=== PATIENT | male | born 1960 | race Caucasian/White ===

== ENCOUNTER 2018-11-27 10:27 | Outpatient (CLI) | payer OTHER ==
--- NOTE | 2018-11-27 20:16 | CT ---
CT ABDOMEN AND PELVIS WITH AND WITHOUT CONTRAST AND WITH RECONSTRUCTIONS ADRENAL WASHOUT STUDY: 11/27/2018 HISTORY/TECHNIQUE: A spiral CT of the abdomen and pelvis is done. There is a history of an adrenal mass, which was said to have been looked at by an MRI in [place] previously. I do not have any imaging studies for compar chio, or written reports. FINDINGS: Axial slices were initially acquired without IV contrast. Venous and delayed images were then obtain ed. The delays were somewhat nonstandard, compared to a classic washout study, but still very helpfu l. There is a rounded area in the right adrenal glands that is presumed to be a small mass but measu res about 1.7 cm in size. The midportion of the left adrenal gland is slightly bulbous as well, thou gh it is hard to absolutely define a mass here. The pre-contrast numbers of the right adrenal gland were -7, highly suggestive of an adenoma in and o f itself. The venous numbers were 30, and it should be noted that this was done somewhat after the w ound might normally do the arterial phase. A 4-minute delay washout was 16. By these values, that w ould yield an absolute washout of 37.8% and a relative washout of 46.7%. Relative washouts of 40% or higher are consistent with adenomas, as are negative numbers on pre-contrast studies. These two nicole ues alone strongly suggest an adenoma. The absolute washout was indeterminate but given the timing b eing nonstandard, I am not surprised with this. The lung bases are clear. The liver, spleen, pancreas, gallbladder, kidneys, and abdominal aorta are unremarkable. The bowel is unremarkable. No free air or free fluid is seen. CT of the pelvis show s no pelvic masses, fluid collections, or free air. There are no acute inflammatory changes. There is probably a very minor amount of thickening of the wall os the sigmoid colon, which I suspect is ch ronic. IMPRESSION: A 1.7 cm right adrenal mass. Washout findings are highly suggestive of a benign adenoma. POS: HOME
== END 2018-11-27 10:28 | disposition home or self-care (01) ==
LOC: BURCT 10:27
PROVIDERS: ATTEND Family Medicine
DX: E27.9 Disorder of adrenal gland, unspecified (principal)
CPT/HCPCS: 74178

== ENCOUNTER 2019-08-25 07:23 | Emergency (ER) | payer MEDICARE, OTHER ==
[2019-08-25 07:56] LABS: #Basophils 0.1 thou/uL (0.0-0.2); #Eosinphils 0.1 thou/uL (0.0-0.7); #Lymphocytes 2.1 thou/uL (1.20-3.40); #Monocytes 0.5 thou/uL (0.11-0.59); #Neutrophils 2.5 thou/uL (1.40-6.50); %Basophils 1.6 % (0.0-1.0); %Eosinophils 1.9 % (0.0-10.0); %Monocytes 9.6 % (0.0-10.0); %Neutrophils 47.8 % (42.0-75.0); Hemoglobin 14.3 g/dL (14.0-18.0); Mean Corpuscular HGB CONC 31.6 g/dL (32.0-36.0); Mean Corpuscular Hemoglobin 28.2 pg (27.0-31.0); Mean Platelet Volume 6.1 fL (7.4-10.4); Platelet Count 311 thou/uL (130-400); RBC Distribution Width 12.6 % (11.5-14.5); White Blood Cell (WBC) Count 5.3 thou/uL (4.8-10.8)
[2019-08-25] MEDS ORDERED: Ketorolac Tromethamine 60 MG/2 ML VIAL ONE (08:09)
[2019-08-25 08:16] LABS: ALT (SGPT) 54 U/L (8-55); AST (SGOT) 21 U/L (5-34); Albumin 4.2 g/dL (3.5-5.0); Alkaline Phosphatase 120 U/L (40-110); Anion Gap 12 mmol/L (10-20); BUN (Urea Nitrogen) 13 mg/dL (8.4-25.7); Bilirubin, Total 0.4 mg/dL (0.2-1.2); Calc. Creatinine Clearance 0 mL/min (70-130); Calcium 9.4 mg/dL (7.8-10.44); Carbon Dioxide 26 mmol/L (22-29); Chloride 108 mmol/L (98-107); Estimated GFR-MDRD Greater than 90; Globulin 2.7 g/dL (2.4-3.5); Glucose 102 mg/dL (70-105); Lipase 61 U/L (8-78); Potassium 4.5 mmol/L (3.5-5.1); Protein, Total 6.9 g/dL (6.0-8.3); Sodium 141 mmol/L (136-145)
[2019-08-25 08:18] LABS: Bilirubin Negative (Negative); Blood, Urine Negative (Negative); Clarity Clear (Clear); Glucose, Urine (Dipstick) Negative (Negative); Leukocyte Negative (Negative); Nitrite Negative (Negative); Protein, Urine (Dipstick) Negative (Neg-Trace); Urobilinogen 0.2 mg/dL (Less than 2)
== END 2019-08-25 08:54 | disposition home or self-care (01) ==
LOC: BURERS 07:23
DX: R10.9 Unspecified abdominal pain (principal); R19.7 Diarrhea, unspecified
CPT/HCPCS: 36415; 80053; 81003; 83690; 85025; 96372; 99284; J1885

== ENCOUNTER 2022-01-03 10:12 | Emergency (ER) | payer MEDICARE, OTHER ==
[2022-01-03] MEDS ORDERED: Lidocaine 1% PF 5 ML VIAL ONE (11:11)
== END 2022-01-03 11:40 | disposition home or self-care (01) ==
LOC: BURERS 10:12
DX: S83.91XA Sprain of unspecified site of right knee, initial encounter (principal); M25.461 Effusion, right knee; W18.11XA Fall from or off toilet without subsequent striking against object, initial encounter
CPT/HCPCS: 20610

== ENCOUNTER 2022-04-25 08:40 | Emergency (ER) | payer OTHER ==
[2022-04-25] MEDS ORDERED: methylPREDNISolone Sod Succ/PF 125 MG/2 ML VIAL ONE (10:26)
== END 2022-04-25 10:40 | disposition home or self-care (01) ==
LOC: BURERS 08:40
DX: M51.36 Other intervertebral disc degeneration, lumbar region (principal); M54.42 Lumbago with sciatica, left side; M54.41 Lumbago with sciatica, right side; G89.29 Other chronic pain; Z79.899 Other long term (current) drug therapy
CPT/HCPCS: 72131; 96372; J2930

== ENCOUNTER 2024-11-10 11:27 | Emergency (ER) | payer MEDICARE, OTHER ==
[2024-11-10] MEDS ORDERED: Ipratropium/Albuterol 3 ML NEB ONE (11:28)
[2024-11-10] MEDS ORDERED: Magnesium 2 GM/50 ML BAG (IN WATER) ONE (11:40)
[2024-11-10] MEDS ORDERED: methylPREDNISolone Sod Succ/PF 125 MG/2 ML VIAL ONE (11:40)
[2024-11-10 11:46] LABS: #Basophils 0.2 thou/uL (0.0-0.2); #Eosinophils 0.1 thou/uL (0.0-0.7); #Monocytes 0.7 thou/uL (0.11-0.59); #Neutrophils 5.9 thou/uL (1.40-6.50); %Eosinophils 1.5 % (0.0-10.0); %Lymphocytes 22.4 % (21.0-51.0); %Monocytes 7.5 % (0.0-10.0); %Neutrophils 66.6 % (42.0-75.0); Mean Corpuscular HGB CONC 32.7 g/dL (32.0-36.0); Mean Corpuscular Hemoglobin 28.1 pg (27.0-31.0); Mean Corpuscular Volume 86.2 fl (78.0-98.0); Mean Platelet Volume 6.3 fL (7.4-10.4); Platelet Count 294 10x3/uL (130-400); RBC Distribution Width 11.1 % (11.5-14.5); Red Blood Cell (RBC) Count 4.99 mill/uL (4.70-6.10); White Blood Cell (WBC) Count 8.8 10x3/uL (4.8-10.8)
[2024-11-10] MEDS ORDERED: Ondansetron PF 4 MG/2 ML Vial ONE (11:49)
[2024-11-10 12:08] LABS: Anion Gap 14 mmol/L (10-20); BUN (Urea Nitrogen) 14 mg/dL (8.4-25.7); Bilirubin, Total 0.3 mg/dL (0.2-1.2); Calc. Creatinine Clearance 0 mL/min (70-130); Calcium 9.1 mg/dL (7.8-10.44); Carbon Dioxide 23 mmol/L (23-31); Chloride 106 mmol/L (98-107); Estimated GFR 80; Glucose 107 mg/dL (80-115); Potassium 4.4 mmol/L (3.5-5.1); Sodium 139 mmol/L (136-145)
[2024-11-10 12:09] LABS: ALT (SGPT) 26 U/L (8-55); AST (SGOT) 14 U/L (5-34); Albumin 3.7 g/dL (3.4-4.8); Alkaline Phosphatase 91 U/L (40-110); Globulin 2.7 g/dL (2.4-3.5); Protein, Total 6.4 g/dL (5.8-8.1)
[2024-11-10] MEDS ORDERED: Albuterol 2.5 MG (0.5 mL) NEB ONE ×2 (12:09→12:11)
[2024-11-10] MEDS ORDERED: Ipratropium Bromide 2.5 ml Neb ONE (12:09)
[2024-11-10 12:14] LABS: Troponin I Less than 0.010 ng/mL (< 0.028)
== END 2024-11-10 14:35 | disposition home or self-care (01) ==
LOC: BURERS 11:27
DX: J18.0 Bronchopneumonia, unspecified organism (principal); I10 Essential (primary) hypertension; J44.89 Other specified chronic obstructive pulmonary disease
CPT/HCPCS: 71045; 80053; 83880; 84484; 85025; 93005; 94640; 94644; 94760; 96374; 96375; J2405; J2919; J3475; J7611; J7620; J7644

== ENCOUNTER 2025-10-26 10:58 | Emergency (ER) | payer OTHER ==
[2025-10-26] MEDS ORDERED: predniSONE 20 MG TAB ONE (11:51)
== END 2025-10-26 11:54 | disposition home or self-care (01) ==
LOC: BURERS 10:58
DX: J44.1 Chronic obstructive pulmonary disease with (acute) exacerbation (principal); I10 Essential (primary) hypertension
CPT/HCPCS: 71046; J7512